=== PATIENT | male | born 1955 | race Caucasian/White ===

== ENCOUNTER 2021-01-24 08:45 | Emergency (ER) | payer BC, SELFPAY ==
[2021-01-24 09:05] VITALS: BP 152/71; PULSE 96; RESP 16; TEMP 36.2; O2SAT 98
[2021-01-24 09:07] LABS: Basophils Absolute Auto 0.1 K/mm3 (0.0-0.1); Hematocrit 32.4 % (42.0-52.0); Hemoglobin 8.9 g/dL (14.0-18.0); Immature Granulocyte Absolute 0.04 K/mm3 (0.00-0.031); Immature Granulocyte Percent A 0.4 % (0-0.5); Lymphocytes Absolute Auto 1.78 K/mm3 (0.9-3.2); Mean Corpuscular HGB Conc 27.5 g/dl (32-36); Mean Corpuscular Hemoglobin 21.4 pg (26-34); Mean Corpuscular Volume 77.9 fl (80-100); Mean Platelet Volume 8.7 fl (7.4-10.4); Monocytes Absolute Auto 0.8 K/mm3 (0.1-0.6); Monocytes Percent Auto 7.3 % (2.6-8.5); Neutrophils Absolute Auto 7.8 K/mm3 (1.3-6.7); Neutrophils Percent Auto 74.3 % (45.5-73.1); Platelet Count Result 528 k/mm3 (150-375); Red Blood Count 4.16 M/mm3 (4.6-6.20); White Blood Count 10.5 K/mm3 (4.5-10.0)
[2021-01-24 09:11] LABS: Add Urine Microscopic? NO; Appearance Urine Clear (Clear); Bilirubin Urine Negative (Negative); Blood Urine Negative (Negative); Color Urine Yellow (Yellow); Glucose Urine UA Negative (Negative); Ketones Urine Negative (Negative); Leukocyte Esterase Ur Negative LEU/UL (Negative); Mucus Urine Rare /lpf; Nitrate Urine Negative (Negative); Protein Urine Negative (Negative); RBC Urine 0-2 /hpf (0-2); Specific Grav Ur 1.018 (1.001-1.035); Squamous Epithelial Cell Urine Rare /hpf (Few); Urobilinogen Urine Negative mg/dL (<2.0); WBC Urine 0-3 /hpf
[2021-01-24 09:17] LABS: Alanine Aminotransferase 13 U/L (4-50); Albumin Level 4.3 g/dL (3.5-5.1); Alkaline Phosphatase 64 U/L (38-126); Anion Gap 14 mmol/L (8-16); Aspartate Amino Transferase 23 U/L (17-59); Bilirubin,Total 0.3 mg/dL (0.2-1.3); Blood Urea Nitrogen 17 mg/dL (9-20); Calcium 8.5 mg/dL (8.4-10.2); Carbon Dioxide 18 mmol/L (22-30); Chloride 104 mmol/L (98-107); Estimated CRCL calculation 74 ml/min; Estimated Glomerular Filt Rate > 60; Ethanol < 10 mg/dL (<10); Glucose 253 mg/dL (75-110); Potassium 4.7 mmol/L (3.4-5.0); Sodium 136 mmol/L (137-145)
[2021-01-24 09:24] LABS: Amphetamine Screen Urine Negative (Negative); Barbiturate Screen Urine Negative (Negative); Benzodiazepines Screen Urine Negative (Negative); Cannabinoid Screen Urine Negative (Negative); Cocaine Screen Urine Negative (Negative); Methadone Screen Urine Negative (Negative); Opiate Screen Urine Negative (Negative); Phencyclidine Screen Urine Negative (Negative)
[2021-01-24 09:52] LABS: Thyroid Stimulating Hormone 0.621 uIU/mL (0.465-4.680)
[2021-01-24] MEDS: ACETAMINOPHEN 325 MG TABLET 650 MG PO (10:48)
[2021-01-24] MEDS: ONDANSETRON HCL ODT 4 MG TABLET PO (10:57)
--- NOTE | 2021-01-24 11:13 | PC.NURSE ---
Christie from crisis here to evaluate.
[2021-01-24] MEDS: INSULIN HUMAN REGULAR (*BKC) 100 UNITS/ML 8 UNITS SUB-Q (11:51)
[2021-01-24] MEDS: SODIUM CHLORIDE 0.9% IV 1,000 ML 999 ML IV CONT (11:51)
[2021-01-24 12:53] LABS: Glucose Point of Care 165 mg/dl (65-105)
--- NOTE | 2021-01-24 13:03 | ED.GENADULT ---
HPI - General Adult General Chief complaint: Psychiatric Symptoms Stated complaint: SI Time Seen by Provider: 01/24/21 09:04 Source: patient, family and RN notes reviewed Mode of arrival: ambulatory Limitations: no limitations History of Present Illness HPI narrative: Patient is a 65-year-old male who presents to emergency department for evaluation of possible suicidal ideation patient presents noting that he had called the suicide hotline today had a discussion with the individual and hung up police were contacted picked the patient up at his eye doctor's appointment and brought him to the emergency department for evaluation patient notes history of depression is followed by primary care and therapy for this and is medicated with antidepressant cessation on arrival does note some depression related to the 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 Patient on arrival denying any suicidal ideation or homicidal ideation. Patient notes that this morning he had been more depressed. Patient otherwise in the room in no distress upon arrival resting comfortably in the room in no distress is noted Related Data Home Medications Medication Instructions Recorded Confirmed carvedilol 08/20/19 escitalopram oxalate mg 08/20/19 ezetimibe mg 08/20/19 glyburide mg 08/20/19 insulin glargine [Lantus Solostar unit SUBCUT 08/20/19 U-100 Insulin] lisinopril 08/20/19 metformin mg 08/20/19 pantoprazole PO 08/20/19 zolpidem 08/20/19 Allergies Allergy/AdvReac Type Severity Reaction Status Date / Time amoxicillin Allergy Unknown itching, Verified 01/24/21 09:17 rash Review of Systems Review of Systems: All systems reviewed & are unremarkable except as noted in HPI and below PMFSH Past Medical History Medical History (Updated 01/24/21 @ 13:08 by Tristan Corral PA-C) Coronary artery disease Depression Diabetes type 2, controlled Social History Social History Smoking status: Never smoker Substance use type: does not use Gender identity (if verbalized by the patient): Male Exam Narrative: Exam Narrative: GENERAL: Well-appearing, well-nourished, and in no acute distress. HEAD: Normocephalic, atraumatic. EYES: PERRLA and EOMI. ENT: Nares clear, no rhinorrhea or epistaxis. Mucous membranes moist. CHEST: Clear to auscultation. No respiratory distress. No wheezes rales or rhonchi HEART: Regular rate and rhythm. No murmur heard. EXTREMITIES: Normal range of motion. No edema. SKIN: Warm, dry, no rash. NEURO: No focal deficits. Alert and oriented x3. PSYCH: Normal mood and affect. Course Course Emergency Course: Patient was evaluated in the emergency department by crisis and myself felt appropriate to be discharged home will follow with this therapist tomorrow in regards to his depression patient was able to fill out a safety contract his has been present during his visit patient is feeling better and has been cooperative patient was also found to be anemic discussion was made with GI and he will be referred to GI for further evaluation of his anemia and discussion of upper endoscopic he patient is denying any GI bleeding takes a PPI twice daily and will be discharged home with outpatient therapy for this as well patient provided with reasons to return and agrees to do so if symptoms worsen is felt appropriate for outpatient reevaluation Consultations Consultation #1: Discussion was made with Dr. Grimaldo the primary care doctor who will follow patient up for depression and his anemia Discussed case with Dr. Black the safety clothing and equipment developer who will follow the patient up in clinic Date: 01/24/21 Vital Signs Vital signs: Vital Signs Temperature 97.1 F L 01/24/21 09:05 Pulse Rate 96 01/24/21 09:05 Respiratory Rate 16 01/24/21 09:05 Blood Pressure 152/71 H
== END 2021-01-24 13:18 | disposition home or self-care (01) ==
PROVIDERS: Emergency Provider Emergency Medicine; PCP Family Medicine Adolescent Medicine
DX: F32.9 Major depressive disorder, single episode, unspecified (principal); D64.9 Anemia, unspecified; I25.10 Atherosclerotic heart disease of native coronary artery without angina pectoris; E11.9 Type 2 diabetes mellitus without complications; Z79.4 Long term (current) use of insulin
CPT/HCPCS: 36415; 80053; 80307; 81003; 82948; 84443; 85025; 96360; 99284; A9270; J1815; J7030

== ENCOUNTER 2021-06-27 00:20 | Day surgery (SDC) | payer BC, SELFPAY ==
[2021-06-12 14:14] VITALS: BMI 32.5
[2021-06-27 09:23] VITALS: BP 118/65; PULSE 101; RESP 18; TEMP 35.7; O2SAT 100; BMI 32.6
--- NOTE | 2021-06-27 09:46 | WPDANESEPPF ---
Anes - Initial Pre Proc Eval Procedure: Operation Date: 06/27/21 10:45 Proposed Procedures p Esophagogastroduodenoscopy & Colonoscopy - Melvin Madera MD Date/Time: 06/27/21 09:46 Surgeon: Melvin Madera MD Pre Op Diagnosis: CALE, nausea, vomiting Patient Data Age: 65 Gender: M Height: 1.8 m Weight: 106.1 kg Last Vital Signs Temp 35.7 C L 06/27/21 09:23 Pulse 101 H 06/27/21 09:23 Resp 18 06/27/21 09:23 BP 118/65 06/27/21 09:23 Pulse Ox 100 06/27/21 09:23 Allergies Allergy/AdvReac Type Severity Reaction Status Date / Time amoxicillin Allergy Unknown itching, Verified 06/27/21 09:40 rash morphine Allergy Nausea Verified 06/27/21 09:40 Home Medications Medication Instructions Recorded Confirmed Type carvedilol 6.25 mg PO BID 08/20/19 06/27/21 History ezetimibe 10 mg PO DAILY 08/20/19 06/27/21 History glyburide 5 mg PO BID 08/20/19 06/27/21 History insulin glargine [Lantus Solostar See Rx Instructions .ROUTE .COMPLEX 08/20/19 06/27/21 History U-100 Insulin] lisinopril 40 mg PO DAILY 08/20/19 06/27/21 History metformin 1,000 mg PO BID 08/20/19 06/27/21 History pantoprazole 40 mg PO BID 08/20/19 06/27/21 History promethazine 12.5 mg PO TID PRN #10 tablet 08/20/19 06/27/21 Rx zolpidem 10 mg PO HS 08/20/19 06/27/21 History duloxetine 60 mg capsule,delayed 60 mg PO DAILY 05/22/21 06/27/21 History release aspirin [Adult Aspirin] 81 mg PO DAILY 06/12/21 06/27/21 History metoclopramide HCl 10 mg PO HS 06/12/21 06/27/21 History Patient hx anesthesia problems: none Family hx anesthesia problems: none Results Review: All pre-operative results and documents have been reviewed as part of the pre-operative evaluation. [facility] Past Medical History Medical History (Updated 06/27/21 @ 09:46 by Bhargav Ford MD) Coronary artery disease Depression Depression Diabetes type 2, controlled Obesity Surgical History Surgical History (Updated 06/27/21 @ 09:46 by Bhargav Ford MD) History of coronary artery stent placement Social History Social History Smoking status: Never smoker Alcohol intake: never Substance use type: does not use Living arrangements: alone Gender identity (if verbalized by the patient): Male Spiritual care concerns: No Anes - Eval Final PreProcedure Day of Procedure 06/27/21 09:46 Patient weight: obese Heart: regular rate and rhythm Lungs: clear to auscultation Airway: Mallampati scale class III Neurological: alert and oriented Last oral intake: >/= 8 hours ASA classification: III Emergent: no Anesthetic plan: proceed Anesthesia type and monitoring: general GIVS and standard monitoring Results Review: All pre-operative results and documents have been reviewed as part of the pre-operative evaluation. Informed Consent: The patient's anesthetic plan and its attendant risks and benefits were discussed with the patient/family/POA. Questions were solicited and answers provided to the satisfaction of the patient/family/POA.
[2021-06-27 09:48] LABS: Glucose Point of Care 206 mg/dl (65-105)
[2021-06-27] MEDS: LACTATED RINGERS 1,000 ML 150 ML IV CONT (09:51)
[2021-06-27] MEDS: ONDANSETRON INJ 4 MG/2 ML VIAL IV PUSH (09:51)
--- NOTE | 2021-06-27 10:15 | WPDGICN ---
Assessment and Plan Assessment and plan (1) CALE (iron deficiency anemia): Code(s): D50.9 - Iron deficiency anemia, unspecified Status: Acute Assessment and Plan: Patient has iron deficiency anemia suggesting potential for GI blood loss. Although patient has seen no blood in his stools a colonoscopy an EGD will be performed. Additionally iron deficiency anemia likely is on the basis of iron malabsorption. Given his previous gastrojejunostomy probably is not absorbing iron properly. Iron infusion therapy is suggested. 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 Presumably this was on the basis of benign disease and peptic ulcer disease this will be evaluated at the time of EGD because of ongoing nausea vomiting. (3) Diabetes type 2, controlled: Code(s): E11.9 - Type 2 diabetes mellitus without complications Status: Acute Assessment and Plan: Patient has diabetes mellitus raising the question of diabetic gastroparesis. EGD will be performed to evaluate for outlet obstruction. consider Reglan use of other if no obstruction in 5 countered. (4) Nausea & vomiting: Code(s): R11.2 - Nausea with vomiting, unspecified Status: Acute Assessment and Plan: Patient has ongoing nausea vomiting is uncertain whether this related to prior bypass gastrojejunostomy or poor gastric emptying related to diabetes. GI Consult Note Consult date/time: 06/27/21 10:15 HPI: Pancho Cordova is a 65 year old male Referred for GI endoscopy because of iron deficiency anemia. Patient denies any obvious signs of GI blood loss. Lab work reveals iron deficient anemia. Patient's past history is significant for duodenal stricture. This required a diverting gastrojejunostomy performed at [facility]. Additionally has been more than 10 years since last colonoscopy in screening colonoscopy is advised. Patient does have frequent nausea and vomiting. After having had his gastric jejunostomy. Patient presents today for both colonoscopy and EGD. Review of Systems Review of Systems: All systems reviewed & are unremarkable except as noted in HPI and below PMFSH Past Medical History Medical History (Updated 06/27/21 @ 10:17 by Melvin Madera MD) Coronary artery disease Depression Depression Diabetes type 2, controlled Obesity Surgical History Surgical History (Updated 06/27/21 @ 09:46 by Bhargav Ford MD) History of coronary artery stent placement Social History Social History Smoking status: Never smoker Alcohol intake: never Substance use type: does not use Living arrangements: alone Gender identity (if verbalized by the patient): Male Spiritual care concerns: No Meds Home Medications and Allergies Home Medications Medication Instructions Recorded Confirmed Type carvedilol 6.25 mg PO BID 08/20/19 06/27/21 History ezetimibe 10 mg PO DAILY 08/20/19 06/27/21 History glyburide 5 mg PO BID 08/20/19 06/27/21 History insulin glargine [Lantus Solostar See Rx Instructions .ROUTE .COMPLEX 08/20/19 06/27/21 History U-100 Insulin] lisinopril 40 mg PO DAILY 08/20/19 06/27/21 History metformin 1,000 mg PO BID 08/20/19 06/27/21 History pantoprazole 40 mg PO BID 08/20/19 06/27/21 History promethazine 12.5 mg PO TID PRN #10 tablet 08/20/19 06/27/21 Rx zolpidem 10 mg PO HS 08/20/19 06/27/21 History duloxetine 60 mg capsule,delayed 60 mg PO DAILY 05/22/21 06/27/21 History release aspirin [Adult Aspirin] 81 mg PO DAILY 06/12/21 06/27/21 History metoclopramide HCl 10 mg PO HS 06/12/21 06/27/21 History Allergies Allergy/AdvReac Type Severity Reaction Status Date / Time amoxicillin Allergy Unknown itching, Verified 06/27/21 09:40
[2021-06-27] MEDS: SIMETHICONE ORAL SUSPENSION 20 MG/0.3 ML 30 ML BOTTLE 0.6 ML IRRIGATION (11:02)
--- NOTE | 2021-06-27 11:23 | SUR.OPER ---
EGD started at 1101 and ended at 1105. Colonoscopy started at 1111 and ended at 1120.
[2021-06-27 11:24] VITALS: BP 83/49; PULSE 91; RESP 17; O2SAT 95
[2021-06-27 11:34] VITALS: BP 89/55; PULSE 90; RESP 20; O2SAT 98
[2021-06-27 11:44] VITALS: BP 120/71; PULSE 86; RESP 25; O2SAT 98
[2021-06-27 11:58] LABS: Glucose Point of Care 173 mg/dl (65-105)
== END 2021-06-27 11:50 | disposition home or self-care (01) ==
PROVIDERS: PCP Family Medicine Adolescent Medicine; Visit Provider Internal Medicine Gastroenterology
PROC: 0DJ08ZZ Inspection of Upper Intestinal Tract, Via Natural or Artificial Opening Endoscopic (ICD-10-PCS; CPT 43235; principal; 2021-06-27 10:45)
DX: D50.9 Iron deficiency anemia, unspecified (principal); R11.2 Nausea with vomiting, unspecified; E11.9 Type 2 diabetes mellitus without complications; Z98.0 Intestinal bypass and anastomosis status; Z98.84 Bariatric surgery status; K64.8 Other hemorrhoids; I25.10 Atherosclerotic heart disease of native coronary artery without angina pectoris; F32.9 Major depressive disorder, single episode, unspecified; E66.9 Obesity, unspecified; Z68.32 Body mass index [BMI] 32.0-32.9, adult; Z79.4 Long term (current) use of insulin; Z79.84 Long term (current) use of oral hypoglycemic drugs; Z79.82 Long term (current) use of aspirin
CPT/HCPCS: 43239; 45378; 82948; 87081; J2405; J2704; J7120

== ENCOUNTER → 2021-11-13 07:26 | Outpatient (CLI) | payer BC, OTHER, SELFPAY ==
--- NOTE | ~2021-11-13 | MR_ITS ---
EXAMINATION: MR lumbar spine wo [facility] EXAM DATE: 11/13/2021 08:19 INDICATION: M54.50 - Low back pain, unspecified . TECHNIQUE: Multi-sequential, multiplanar MR images of the lumbar spine were obtained without contrast . Sagittal T1, T2, T2 fat saturation images. Axial T2 weighted images. There is no prior study for comparison. FINDINGS: There are subacute mild compression fractures of L2 and L3. Mild loss of the other vertebra l body heights as well without edema. The conus medullaris terminates at the T12-L1 level and has nor mal signal intensity and morphology. Nerve root redundancy above the L2-3 level from severe central c anal stenosis. There is 4 mm retrolisthesis L4 on L5. There is severe L2-3 and L3-L4 disc disease, mo derate to severe at L4-5 and L5-S1. Paraspinal soft tissue is unremarkable. Level by level evaluation: T12-L1: Disc does not extend beyond the endplate margin. Facet arthropathy: Minimal. Neural foraminal stenosis: No stenosis. Central canal stenosis: No stenosis. L1-L2: Disc does not extend beyond the endplate margin. Facet arthropathy: Mild. Neural foraminal stenosis: No stenosis. Central canal stenosis: No stenosis. L2-L3: There is a large diffuse disc bulge. Facet arthropathy: Severe . Ligamentum flavum enlargement. Neural foraminal stenosis: Moderate bilateral. Central canal stenosis: Severe. L3-L4: There is a large diffuse disc bulge. Facet arthropathy: Moderate to severe . Ligamentum flavum enlargement. Neural foraminal stenosis: Moderate bilateral, left greater than right. Central canal stenosis: Severe, less than level above. L4-L5: There is a moderate diffuse disc bulge. Facet arthropathy: Moderate. Neural foraminal stenosis: Moderate bilateral. Central canal stenosis: Moderate to severe. L5-S1: There is a moderate diffuse disc bulge. Facet arthropathy: Mild to moderate. Neural foraminal stenosis: Moderate bilateral. Central canal stenosis: Mild to moderate. IMPRESSION: 1. L2-3 severe central canal stenosis causing nerve root redundancy above. Slightly less severe L3-4 Central canal stenosis. 2. Subacute mild compression fractures at L2 and L3. Chronic loss of other lumbar vertebral body hei ghts. 3. Advanced spondylosis as above. Reviewed, dictated and finalized at location B. IMPRESSION: 1. L2-3 severe central canal stenosis causing nerve root redundancy above. Sli ghtly less severe L3-4 Central canal stenosis. 2. Subacute mild compression fractures at L2 and L3. Chronic loss of other lum bar vertebral body heights. 3. Advanced spondylosis as above.
== END ==
PROVIDERS: PCP Family Medicine Adolescent Medicine; Visit Provider Physician Assistant
DX: M47.896 Other spondylosis, lumbar region (principal); S32.020A Wedge compression fracture of second lumbar vertebra, initial encounter for closed fracture; X58.XXXA Exposure to other specified factors, initial encounter
CPT/HCPCS: 72148

== ENCOUNTER 2022-01-19 11:08 | Outpatient (CLI) | payer BC, OTHER, SELFPAY ==
[2022-01-19 11:33] LABS: Basophils Absolute Auto 0.1 K/mm3 (0.0-0.1); Basophils Percent Auto 1.8 % (0.2-1.2); Hematocrit 33.5 % (42.0-52.0); Hemoglobin 9.8 g/dL (14.0-18.0); Immature Granulocyte Absolute 0.02 K/mm3 (0.00-0.031); Immature Granulocyte Percent A 0.3 % (0-0.5); Lymphocytes Absolute Auto 1.81 K/mm3 (0.9-3.2); Lymphocytes Percent Auto 27.4 % (18.3-44.2); Mean Corpuscular HGB Conc 29.3 g/dl (32-36); Mean Corpuscular Hemoglobin 23.7 pg (26-34); Mean Corpuscular Volume 81.1 fl (80-100); Mean Platelet Volume 8.9 fl (7.4-10.4); Monocytes Absolute Auto 0.5 K/mm3 (0.1-0.6); Monocytes Percent Auto 8.2 % (2.6-8.5); Neutrophils Absolute Auto 4.1 K/mm3 (1.3-6.7); Neutrophils Percent Auto 62.3 % (45.5-73.1); Platelet Count Result 518 k/mm3 (150-375); Red Blood Count 4.13 M/mm3 (4.6-6.20); Red Cell Distribution Width 17.2 % (11.5-14.5); White Blood Count 6.6 K/mm3 (4.5-10.0)
[2022-01-19 11:41] LABS: Hypochromasia 2+ (NORMAL); Platelet Estimate Increased (Adequate)
[2022-01-19 11:42] LABS: Anisocytosis 1+ (NORMAL); Ovalocytes 1+ (NORMAL); Poikilocytosis 1+ (NORMAL)
[2022-01-19 12:49] LABS: Alanine Aminotransferase 12 U/L (6-50); Albumin Level 4.1 g/dL (3.5-5.1); Alkaline Phosphatase 64 U/L (38-126); Anion Gap 8 mmol/L (8-16); Aspartate Amino Transferase 19 U/L (17-59); Bilirubin,Total 0.2 mg/dL (0.2-1.3); Blood Urea Nitrogen 21 mg/dL (9-20); Calcium 8.6 mg/dL (8.4-10.2); Carbon Dioxide 19 mmol/L (22-30); Chloride 106 mmol/L (98-107); Estimated Glomerular Filt Rate > 60; Glucose 127 mg/dL (65-110); Lactate Dehydrogenase 373 U/L (313-618); Potassium 5.2 mmol/L (3.4-5.0); Sodium 133 mmol/L (137-145)
[2022-01-19 12:55] LABS: Iron 29 ug/dL (49-181)
[2022-01-19 13:01] LABS: Percent Iron Saturation 6 % (20-50)
[2022-01-19 13:24] LABS: Ferritin 5.85 ng/mL (11.1-264)
[2022-01-19 13:55] LABS: Folic Acid 11.2 ng/mL (2.76->20)
== END 2022-01-19 11:09 | disposition home or self-care (01) ==
LOC: ANHLAB 11:09
PROVIDERS: PCP Family Medicine Adolescent Medicine; Visit Provider Internal Medicine Hematology & Oncology
DX: D64.9 Anemia, unspecified (principal)
CPT/HCPCS: 36415; 80053; 82607; 82728; 82746; 83540; 83550; 83615; 85025

== ENCOUNTER → 2022-05-31 09:37 | Outpatient (CLI) | payer OTHER, SELFPAY ==
--- NOTE | ~2022-05-31 | XR_ITS ---
EXAMINATION: XR ribs RT 2V w CXR 2V INDICATION: Cough, right chest pain TECHNIQUE: Frontal and lateral views of the chest and 3 views of the right ribs were obtained. COMPARISON: 04/12/2014 FINDINGS: There is mild atelectasis of the lung bases. No pleural effusion or pneumothorax. The cardi omediastinal silhouette is normal. There are possible nondisplaced fractures at the anterolateral asp ects of the right seventh and eighth ribs. There are bridging osteophytes at multiple levels in the s pine, consistent with diffuse idiopathic skeletal hyperostosis (DISH). IMPRESSION: 1. Possible nondisplaced fractures at the anterolateral aspects of the right seventh and eighth ribs. Reviewed, dictated and finalized at location A. IMPRESSION: 1. Possible nondisplaced fractures at the anterolateral aspects of the right se venth and eighth ribs.
== END ==
PROVIDERS: PCP Family Medicine Adolescent Medicine; Visit Provider Physician Assistant
DX: R05.3 Chronic cough (principal); R07.81 Pleurodynia; R91.8 Other nonspecific abnormal finding of lung field
CPT/HCPCS: 71046; 71100

== ENCOUNTER 2022-07-24 08:33 | Outpatient (CLI) | payer OTHER, SELFPAY ==
[2022-07-24 10:49] LABS: Cholesterol 235 mg/dL (0-200); HDL Direct 41 mg/dL; Triglycerides 206 mg/dL (<150)
[2022-07-24 11:01] LABS: LDL Cholesterol Direct 148 mg/dL
[2022-07-24 11:20] LABS: Hemoglobin A1C 6.8 % (<5.7)
[2022-07-26 20:57] LABS: CRP, High Sensitivity 4.9 mg/L (***)
[2022-07-27 07:38] LABS: Reference Lab Test Result 63
[2022-07-30 06:43] LABS: Testosterone Total 302 ng/dL (250-1100)
== END 2022-07-24 08:34 | disposition home or self-care (01) ==
LOC: ANHLAB 08:35
PROVIDERS: Internal Medicine Hematology & Oncology; Physician Assistant; PCP Family Medicine Adolescent Medicine; Visit Provider Family Medicine Adolescent Medicine
DX: E78.00 Pure hypercholesterolemia, unspecified (principal); I10 Essential (primary) hypertension; I25.10 Atherosclerotic heart disease of native coronary artery without angina pectoris; E11.9 Type 2 diabetes mellitus without complications; R53.83 Other fatigue
CPT/HCPCS: 36415; 80061; 83036; 84403; 86141

== ENCOUNTER 2022-11-22 08:00 | Outpatient (RCR) | payer OTHER, SELFPAY ==
--- NOTE | 2022-09-26 08:57 | PTOPEVAL1 ---
Assessment and note entered by Maxine Lam, PT Evaluation Information Diagnosis gait abnormality Onset Sep 2021 Subjective Information gradual decrease in ability to walk due to back pain from lumbar compression fracture; walking less due to pain; in the past 6 months have not had any falls, but have fallen 2x in the past, on step into home from garage- L leg gave out; hard to get up/down from chair; is not doing any leg exercises at home; saw orthopedic dr--initially with the diagnosis of lumbar fracture, did not have surgery, sent to PT GOAL: want legs stronger, not fall, walk better; Reported Pain Level Pain Score Self Report in low back Additional Pain Score Comments pain range in past week 2-7/10; ease by lying down sit, rest, pain meds, stretching; increase pain standing, walking activity; Assessment PT Clinical Summary Darek has the diagnosis of gait abnormality. His history includes lumbar compression fracture about 2 years ago, with pain in back and L hip. He does not do any exercises for his legs, uses a cane PRN and has had a few falls entering his home on the step from garage. With the evaluation, he has decreased functional strength of LE's--requires both hands on chair for sit/stand transfer, single leg standing time on R is 3 and L is 1 second; decreased ROM of L hip flexion and IR motions with pain; tightness over both hamstrings; 5 reps sit/stand time is 23 seconds (norm is 15 sec); 2 minute walking test distance of 350'; and Prather balance score of 49/56; Skilled PT services are indicated for therapeutic exercises and activities to increase LE strength, gait and balance skills, with education for home exercises and posture. During treatment sessions, will monitor his lumbar pain and L hip--? arthritis limiting him, or residual from his back. Plan of Care Interventions Gait Training,Neuro Re-education,Patient/Caregiver Education,Therapeutic Activities,Therapeutic Exercise PT Services Indicated Yes Treatment Frequency and 2x/wk x 4 weeks Duration These treatments will address the objective and functional deficits as defined above. The patient will be advanced safely and appropriately in order for the patient to progress towards his/her prior level of function. Frannieo
--- NOTE | 2022-10-11 13:37 | PCPTNOTE ---
Patient called & cancelled scheduled appointment on 10/09/22 due to being sick.
--- NOTE | 2022-10-26 14:18 | PTOPPROG ---
Assessment and note entered by Maxine Lam, PT Evaluation Information Assessment Status Progress Diagnosis gait abnormality Onset Sep 2021 Subjective Information Darek reports: balance is better; have been into the basement 1x- little leary due to small step width; can walk around grand daughter and her toys--feel safer doing it now than before; been doing the leg exercises; had B 12 infusion this AM; just feel a little off today; during PT session, reported feel dizzy and funny: gave water- had not had any today; and have not eaten for the past 5 hours; and did not taken his insulin today, usually take in the morning; vitals: at rest./ sittin/62 and HR 85; oxygen sat 97% Assessment PT Clinical Summary Darek has received 8 PT sessions. Compared to the initial evaluation: R and L LE strength has increased with standing exercises, sit/stand without use of UE's and R single leg stand time improved/L same; he has not had any falls and reports more comfortable with balance, walking around home and stepping over grand daughter's toys, but still not comfortable on stairs--only gone to his basement 1x; 2 minute walking test distance increased 25' and Prather balance score improved by 1 point; his L hip flexibility is the same; he has been educated on a home exercise program. The goals were partially achieved. Continue PT to further increase LE strength, gait and balance skills, to improve safety with mobility and on stairs. Plan of Care Interventions Gait Training,Neuro Re-education,Patient/Caregiver Education,Therapeutic Activities,Therapeutic Exercise PT Services Indicated Yes Treatment Frequency and 1x/wk for 4 weeks Duration These treatments will address the objective and functional deficits as defined above. The patient will be advanced safely and appropriately in order for the patient to progress towards his/her prior level of function. Additional exercises will be introduced and as well as a comprehensive home exercise program upon discharge, if needed, ?to ensure carryover of functional gains achieved in the clinic. This treatment plan has been reviewed and agreement upon by the patient.
--- NOTE | 2022-11-22 08:31 | PTOPDC ---
Assessment and note entered by Maxine Lam, PT Evaluation Information Assessment Status Discharge Diagnosis gait abnormality Onset Sep 2021 Subjective Information Pancho reports: is more comfortable walking outside on the grass; have not had any falls; L leg is still weaker and less flexible; still having pain in his back-- rate of 2-4/10; is doing the leg exercises; is comfortable going down to his basement, is using the railing; still a little leary of uneven surfaces, when stand too long, legs go numb-- varies depend upon how back is feeling; always careful with having 3 yr grandchild's toys on the floor; Reported Pain Level Pain Score Self Report back Additional Pain Score Comments pain range of 2-4/10 in past week of back and L leg weak; Assessment PT Clinical Summary Pancho has received 11 PT sessions for gait and balance. Compared to the last reeval: strength of legs is about the same--continues to have decreased ability with single leg standing; Prather balance score is the same 50/56--issues with small base of support, alternate toe tap and single leg standing; 2 minute walking test distance increased 75'; He has not had any falls since starting therapy and reports more comfortable on basement stairs and walking in the grass. He is indep with his HEP and has good safety awareness with mobility. Pancho continues to have low back pain, with numbness in legs and L LE feelings of weakness and giving out. This also contributes to his decreased walking/balance skills. The PT goals were partially achieved. Discharge PT services. He is to continue with his HEP. Plan of Care PT Services Indicated No
== END 2022-12-10 12:44 | disposition home or self-care (01) ==
LOC: ANHPT 08:00
PROVIDERS: PCP Family Medicine Adolescent Medicine; Visit Provider Family Medicine Adolescent Medicine
DX: R26.89 Other abnormalities of gait and mobility (principal)
CPT/HCPCS: 97110; 97112; 97162; 97530

== ENCOUNTER 2023-05-07 14:34 | Outpatient (CLI) | payer OTHER, SELFPAY ==
[2023-05-07 14:49] LABS: Basophils Absolute Auto 0.2 K/mm3 (0.0-0.1); Basophils Percent Auto 1.6 % (0.2-1.2); Eosinophils Percent Auto 0.1 % (0-4.4); Hematocrit 39.1 % (42.0-52.0); Hemoglobin 12.2 g/dL (14.0-18.0); Immature Granulocyte Absolute 0.04 K/mm3 (0.00-0.031); Immature Granulocyte Percent A 0.4 % (0-0.5); Lymphocytes Absolute Auto 1.92 K/mm3 (0.9-3.2); Lymphocytes Percent Auto 20.7 % (18.3-44.2); Mean Corpuscular HGB Conc 31.2 g/dl (32-36); Mean Corpuscular Hemoglobin 30.3 pg (26-34); Mean Platelet Volume 10.5 fl (7.4-10.4); Monocytes Absolute Auto 0.6 K/mm3 (0.1-0.6); Monocytes Percent Auto 6.8 % (2.6-8.5); Neutrophils Absolute Auto 6.5 K/mm3 (1.3-6.7); Neutrophils Percent Auto 70.4 % (45.5-73.1); Platelet Count Result 169 k/mm3 (150-375); Red Blood Count 4.03 M/mm3 (4.6-6.20); Red Cell Distribution Width 13.5 % (11.5-14.5); White Blood Count 9.3 K/mm3 (4.5-10.0)
[2023-05-07 16:25] LABS: Anion Gap 12 mmol/L (8-16); Blood Urea Nitrogen 21 mg/dL (9-20); Calcium 8.3 mg/dL (8.4-10.2); Carbon Dioxide 19 mmol/L (22-30); Chloride 102 mmol/L (98-107); Estimated Glomerular Filt Rate 60; Glucose 184 mg/dL (65-110); Iron 57 ug/dL (49-181); Potassium 4.6 mmol/L (3.4-5.0); Sodium 133 mmol/L (137-145)
[2023-05-07 16:36] LABS: Percent Iron Saturation 19 % (20-50)
[2023-05-07 17:32] LABS: Folic Acid 8.2 ng/mL (2.76->20)
== END 2023-05-07 14:35 | disposition home or self-care (01) ==
LOC: ANHLAB 14:35
PROVIDERS: PCP Family Medicine Adolescent Medicine; Visit Provider Internal Medicine Hematology & Oncology
DX: D64.9 Anemia, unspecified (principal)
CPT/HCPCS: 36415; 80048; 82607; 82728; 82746; 83540; 83550; 85025

== ENCOUNTER 2023-07-05 09:17 | Outpatient (CLI) | payer OTHER, SELFPAY ==
[2023-07-05 15:34] LABS: Cholesterol 235 mg/dL (0-200); Creatinine Urine 106.6 mg/dL; HDL Direct 37 mg/dL; Triglycerides 363 mg/dL (<150)
[2023-07-05 15:44] LABS: LDL Cholesterol Direct 139 mg/dL
[2023-07-05 15:48] LABS: MALB Creatinine Ratio < 5.6 mg/g (0-30); Microalbumin Urine Random < 6.0 mg/L (0-16.7)
[2023-07-05 15:56] LABS: Hemoglobin A1C 5.9 % (<5.7)
[2023-07-05 16:02] LABS: Prostate Specific Antigen 0.6 ng/mL (< OR = 4.0)
== END 2023-07-05 09:18 | disposition home or self-care (01) ==
PROVIDERS: PCP Family Medicine Adolescent Medicine; Visit Provider Internal Medicine Hematology & Oncology
DX: E11.9 Type 2 diabetes mellitus without complications (principal); Z12.5 Encounter for screening for malignant neoplasm of prostate; E78.00 Pure hypercholesterolemia, unspecified
CPT/HCPCS: 36415; 80061; 82043; 83036; 84153; G0103